=== PATIENT | male | born 1970 | race Caucasian/White ===

== ENCOUNTER 2021-07-19 16:13 | Outpatient (REF) | payer OTHER, SELFPAY ==
--- NOTE | ~2021-07-19 | MR_ITS ---
EXAMINATION: MR BRAIN WITHOUT CONTRAST CLINICAL INFORMATION: Migraine. COMPARISON: None available. TECHNIQUE: Multiplanar, multisequence imaging of the brain was performed without intravenous contrast. FINDINGS: There is no acute infarction, hemorrhage, mass, or extra-axial fluid collection. The brain parenchyma signal appears normal. The ventricles are normal in size and configuration without evidence of hydrocephalus. The cerebellar tonsils are normally positioned above the foramen magnum. The major arterial flow voids are preserved at the skull base. The orbital contents appear normal. There is scattered paranasal sinus mucosal thickening and retention cysts in the left maxillary sinus. The mastoids are clear. MR/MR head/brain wo con IMPRESSION: No mass or acute intracranial abnormality identified.
== END 2021-07-19 16:14 | disposition home or self-care (01) ==
LOC: HO.MRI 16:13
PROVIDERS: Visit Provider Psychiatry & Neurology Neurology
DX: G43.909 Migraine, unspecified, not intractable, without status migrainosus (principal)
CPT/HCPCS: 70551